=== PATIENT | male | born 1950 | race Caucasian/White ===

== ENCOUNTER 2016-04-08 10:52 | Outpatient (CLI) | payer OTHER ==
[2016-04-08 12:04] LABS: #Eosinphils 0.4 thou/uL (0.0-0.7); #Lymphocytes 2.2 thou/uL (1.20-3.40); #Monocytes 0.5 thou/uL (0.11-0.59); #Neutrophils 4.5 thou/uL (1.40-6.50); %Basophils 0.6 % (0.0-1.0); %Eosinophils 5.5 % (0.0-10.0); %Lymphocytes 28.9 % (21.0-51.0); %Monocytes 6.9 % (0.0-10.0); Hematocrit 45.2 % (42.0-52.0); Mean Platelet Volume 8.8 fL (7.4-10.4); Red Blood Cell (RBC) Count 4.87 mill/uL (4.70-6.10); White Blood Cell (WBC) Count 7.7 thou/uL (4.8-10.8)
[2016-04-08 12:14] LABS: ALT (SGPT) 39 U/L (0-55); AST (SGOT) 23 U/L (5-34); Alkaline Phosphatase 73 U/L (40-150); Anion Gap 16 mmol/L (10-20); BUN (Urea Nitrogen) 23 mg/dL (8.4-25.7); Bilirubin, Direct 0.2 mg/dL (0.1-0.3); Bilirubin, Total 0.5 mg/dL (0.2-1.2); Calc. Creatinine Clearance 0 mL/min (70-130); Calcium 9.8 mg/dL (7.8-10.44); Carbon Dioxide 27 mmol/L (23-31); Chloride 103 mmol/L (98-107); Estimated GFR-MDRD 62; LDL Cholesterol, Calculated 51 mg/dL; Protein, Total 7.2 g/dL (5.8-8.1)
== END 2016-04-08 10:53 | disposition home or self-care (01) ==
LOC: NAVSJIPCSP 10:52
PROVIDERS: ATTEND Family Medicine
DX: Z12.5 Encounter for screening for malignant neoplasm of prostate (principal); I10 Essential (primary) hypertension; E78.00 Pure hypercholesterolemia, unspecified; I25.10 Atherosclerotic heart disease of native coronary artery without angina pectoris
CPT/HCPCS: 36415; 80048; 80061; 80076; 84443; 85025; G0103

== ENCOUNTER 2018-09-15 16:14 | Outpatient (CLI) | payer MEDICARE, OTHER ==
--- NOTE | 2018-09-15 16:59 | RAD ---
EXAM: LEFT FOOT THREE VIEWS: 09/15/18 HISTORY: Left foot pain. FINDINGS/IMPRESSION: No fracture, dislocation, or other significant acute osseous abnormality. Degenerative changes includ ing calcaneal Achilles enthesophyte. No acute process. POS: [facility]
== END 2018-09-15 16:15 | disposition home or self-care (01) ==
LOC: NAV RAD 16:14
PROVIDERS: ATTEND Family Medicine
DX: M79.672 Pain in left foot (principal); M19.072 Primary osteoarthritis, left ankle and foot; M76.62 Achilles tendinitis, left leg; M77.32 Calcaneal spur, left foot